=== PATIENT | male | born 1975 | race Caucasian/White ===

== ENCOUNTER 2021-07-30 21:16 | Observation (INO) ==
[2021-07-30 22:45] LABS: Basophils % 0.4 %; Eosinophils # 0.1 K/mcL (0.0-0.6); Eosinophils % 0.6 %; Hematocrit 44.1 % (37.5-50.1); Immature Granulocytes % 0.4 % (0-4); Lymphocytes # 1.2 K/mcL (0.6-4.6); Lymphocytes % 14.8 %; Mean Corpuscular Hemoglobin 30.5 pg (28.0-33.3); Mean Corpuscular Volume 89.8 fL (83.0-100.0); Monocytes # 0.4 K/mcL (0.0-1.3); Monocytes % 5.6 %; Neutrophils # 6.2 K/mcL (1.6-8.9); Platelet Count 267 K/mcL (140-400); Red Blood Count 4.91 M/mcL (4.19-5.50); Red Cell Distribution Width 12.2 % (11.5-14.5); Segmented Neutrophils % 78.2 %; White Blood Count 7.9 K/mcL (4.3-11.1)
[2021-07-30 22:52] LABS: INR 1.2; Prothrombin Time 13.7 Seconds (9.4-12.1)
[2021-07-30 22:54] LABS: Activated Partial Thrombo Time 38.9 Seconds (26.0-36.0)
[2021-07-30 23:08] LABS: BUN/Creatinine Ratio 15 (6-26); Blood Urea Nitrogen 18 mg/dL (6-20); Calcium 9.7 mg/dL (8.6-10.3); Carbon Dioxide 27 mEq/L (23-29); Chloride 104 mEq/L (98-107); Glucose 112 mg/dL (70-105); Osmolality,Calculated 291 (280-300); Potassium 3.8 mEq/L (3.5-5.1); Sodium 139 mEq/L (136-145); eGFR For African Americans > 60 (> 60); eGFR For Non-African Americans > 60 (> 60)
[2021-07-30 23:16] LABS: Troponin I 0.28 ng/mL (< 0.04)
[2021-07-31] MEDS ORDERED: *HR* Heparin 5,000 UNIT/ML VIAL IVP PRN (00:03)
[2021-07-31] MEDS ORDERED: Aspirin 81 MG TAB.CHEW PO ONE (00:03)
[2021-07-31] MEDS ORDERED: *HR* Heparin 5,000 UNIT/ML VIAL IVP ONE (00:03)
[2021-07-31] MEDS ORDERED: Nitroglycerin 0.4 MG TAB.SUBL SL PRN (00:07)
[2021-07-31] MEDS ORDERED: Nitroglycerin 0.4 MG TAB.SUBL SL ONE (00:09)
[2021-07-31] MEDS ORDERED: Perflutren Lipid Microsphere 1.3 ML in 0.9 % Sodium Chloride 8.7 ML IVP PRN (00:10)
[2021-07-31] MEDS ORDERED: Heparin 25,000UNIT/250ML 1/2NS 25,000 UNIT/250 ML IV.SOLN IVC SCH (00:15)
[2021-07-31] MEDS ORDERED: Ondansetron 4 MG/2 ML VIAL IVP PRN (00:55)
[2021-07-31] MEDS ORDERED: Melatonin 3 MG TABLET PO PRN (00:55)
[2021-07-31] MEDS ORDERED: Naloxone 0.4 MG/ML INJ IVP PRN (00:55)
[2021-07-31] MEDS ORDERED: *HR* Promethazine 25 MG/ML VIAL IM PRN (00:55)
[2021-07-31 06:49] LABS: Basophils % 0.5 %; Eosinophils # 0.1 K/mcL (0.0-0.6); Eosinophils % 1.4 %; Hematocrit 43.3 % (37.5-50.1); Hemoglobin 14.3 g/dL (12.9-16.9); Immature Granulocytes % 0.3 % (0-4); Lymphocytes # 1.5 K/mcL (0.6-4.6); Lymphocytes % 23.2 %; Mean Corpuscular Hemoglobin 30.1 pg (28.0-33.3); Mean Corpuscular Volume 91.2 fL (83.0-100.0); Mean Platelet Volume 10.5 fL (9.4-12.4); Monocytes # 0.5 K/mcL (0.0-1.3); Neutrophils # 4.5 K/mcL (1.6-8.9); Platelet Count 238 K/mcL (140-400); Red Blood Count 4.75 M/mcL (4.19-5.50); Red Cell Distribution Width 12.3 % (11.5-14.5); Segmented Neutrophils % 67.6 %; White Blood Count 6.6 K/mcL (4.3-11.1)
[2021-07-31 07:00] LABS: Estimated Average Glucose 120 mg/dl; Hemoglobin A1C 5.8 %
[2021-07-31 07:31] LABS: Heparin anti-factor XA UFH 0.16 IU/mL (0.30-0.70)
[2021-07-31 07:32] LABS: INR 1.2; Prothrombin Time 13.8 Seconds (9.4-12.1)
[2021-07-31] MEDS: *HR* Heparin 5,000 UNIT/ML VIAL IVP PRN ×2 (08:00→19:45)
[2021-07-31 08:06] LABS: Troponin I 0.77 ng/mL (< 0.04)
[2021-07-31 08:13] LABS: BUN/Creatinine Ratio 20 (6-26); Blood Urea Nitrogen 18 mg/dL (6-20); Calcium 9.4 mg/dL (8.6-10.3); Carbon Dioxide 25 mEq/L (23-29); Chloride 105 mEq/L (98-107); Chol/HDL Ratio 4.4 (0-4.9); Cholesterol 176 mg/dL (< 200); Glucose 101 mg/dL (70-105); HDL Cholesterol 40 mg/dL (40-59); LDL Cholesterol,Calculated 122 mg/dL (< 100); Magnesium 2.2 mg/dL (1.6-2.6); Osmolality,Calculated 290 (280-300); Potassium 3.7 mEq/L (3.5-5.1); Sodium 139 mEq/L (136-145); Triglycerides 69 mg/dL (< 150); eGFR For African Americans > 60 (> 60); eGFR For Non-African Americans > 60 (> 60)
[2021-07-31] MEDS ORDERED: *HR* FentaNYL (PF) 100 MCG/2 ML VIAL ONE (09:11)
[2021-07-31] MEDS ORDERED: *HR* Midazolam HCl 2 MG/2 ML VIAL ONE ×2 (09:12→09:27)
[2021-07-31] MEDS ORDERED: 0.9 % Sodium Chloride 1,000 ML ONE ×2 (09:18→09:48)
[2021-07-31] MEDS ORDERED: *HR* Heparin 10,000 UNIT/10 ML VIAL ONE (09:48)
[2021-07-31] MEDS ORDERED: ISOVUE-370 200 ML INFUS..BTL ONE (09:48)
[2021-07-31] MEDS ORDERED: Heparin 1,000 UNITS/500 mL 500 ML ONE (09:48)
[2021-07-31] MEDS ORDERED: Nitroglycerin 1,000 MCG/5 ML VIAL IV ONE (09:49)
[2021-07-31 17:04] VITALS: TEMP 98.2
[2021-07-31 19:37] VITALS: BP 136/78; O2SAT 95
[2021-07-31 19:41] VITALS: PULSE 60
[2021-08-01] MEDS ORDERED: Aspirin Enteric Coated 81 MG Tablet PO SCH (09:00)
== END 2021-07-31 20:19 | disposition short-term general hospital (02) ==
LOC: EMEROOARM 21:16 → 2NENU 21:16 → SUATTDRO 07-31 00:43 → 2ANU 07-31 00:46
PROVIDERS: ADMIT Internal Medicine; ATTEND Internal Medicine